=== PATIENT | female | born 1950 | race Caucasian/White ===

== ENCOUNTER → 2018-01-12 10:07 | Outpatient (CLI) | payer MEDICARE, OTHER, SELFPAY | PROVIDERS: Visit Provider Internal Medicine | DX: M85.852 Other specified disorders of bone density and structure, left thigh (principal); Z78.0 Asymptomatic menopausal state | CPT/HCPCS: 77080 ==

== ENCOUNTER → 2018-10-27 15:27 | Outpatient (CLI) | payer MEDICARE, OTHER, SELFPAY ==
--- NOTE | 2018-10-27 15:31 | DI.RAD.S_ITS ---
PROCEDURE: XR CHEST 2V INDICATIONS: cough TECHNIQUE: 2 views of the chest were acquired. COMPARISON: [facility], , CHEST 2 VIEW, 09/12/2010, 17:07. FINDINGS: Surgical changes and devices: None. Lungs and pleura: Lungs are clear. No pleural effusions or pneumothorax. Mediastinum: Mediastinal contours are normal. Heart size is normal. Bones and chest wall: No suspicious bony abnormalities. Soft tissues appear unremarkable. IMPRESSION: No acute cardiopulmonary disease process. Dictated by: Lilo Cruz MD, PhD on 10/27/2018 at 15:42 Approved by: Lilo Cruz MD, PhD on 10/27/2018 at 15:42
== END ==
PROVIDERS: PCP Student in an Organized Health Care Education/Training Program; Visit Provider Physician Assistant
DX: R05 Cough (principal)
CPT/HCPCS: 71046

== ENCOUNTER → 2019-12-16 08:23 | Outpatient (CLI) | payer MEDICARE, OTHER, SELFPAY ==
--- NOTE | 2019-12-16 | DI.MG.S_ITS ---
BILATERAL DIGITAL SCREENING MAMMOGRAM 3D/2D WITH CAD: 12/16/2019 CLINICAL: Routine screening. Comparison is made to exams dated: 10/25/2016 mammogram, 04/19/2015 mammogram, and 10/08/2013 mammogram - [facility]. The tissue of both breasts is extremely dense, which lowers the sensitivity of mammography. Current study was also evaluated with a Computer Aided Detection (CAD) system. There is a biopsy clip in the left breast. No significant masses, calcifications, or other findings are seen in either breast. There has been no significant interval change. IMPRESSION: NEGATIVE There is no mammographic evidence of malignancy. A 1 year screening mammogram is recommended. This exam was interpreted at Station ID: [id number]. NOTE: For mammograms, a report in lay terms will be sent to the patient. Approximately 15% of breast malignancies will not be visualized mammographically. In the management of a palpable breast mass, a negative mammogram must not discourage biopsy of a clinically suspicious lesion. Electronically Signed By: Sonu robles/quita:12/16/2019 09:58:04 letter sent: Normal Exam ACR BI-RADS Category 1: Negative 3341F
== END ==
PROVIDERS: PCP Student in an Organized Health Care Education/Training Program; Referring Provider Student in an Organized Health Care Education/Training Program; Visit Provider Obstetrics & Gynecology
DX: Z12.31 Encounter for screening mammogram for malignant neoplasm of breast (principal)
CPT/HCPCS: 77063; 77067

== ENCOUNTER → 2020-06-12 13:23 | Outpatient (CLI) | payer MEDICARE, OTHER, SELFPAY ==
[2020-06-12 14:30] LABS: COVID19 -Nasal RAPID Negative (Negative)
== END ==
PROVIDERS: PCP Student in an Organized Health Care Education/Training Program; Visit Provider Physician Assistant
DX: Z01.812 Encounter for preprocedural laboratory examination (principal); Z20.822 Contact with and (suspected) exposure to COVID-19
CPT/HCPCS: 87635; C9803

== ENCOUNTER 2020-09-04 08:30 | Outpatient (RCR) | payer MEDICARE, OTHER, SELFPAY | END 2020-09-04 09:30 | LOC: CAR 08:30 | PROVIDERS: PCP Student in an Organized Health Care Education/Training Program; Referring Provider Thoracic Surgery (Cardiothoracic Vascular Surgery); Visit Provider Thoracic Surgery (Cardiothoracic Vascular Surgery) | DX: Z95.2 Presence of prosthetic heart valve (principal) | CPT/HCPCS: 93798 ==

== ENCOUNTER → 2020-09-14 09:10 | Outpatient (CLI) | payer MEDICARE, OTHER, SELFPAY ==
--- NOTE | 2020-09-14 09:12 | DI.CT.S_ITS ---
PROCEDURE: CT CHEST WO CON INDICATIONS: 6 months Follow up lung nodules TECHNIQUE: Noncontrast 2.0-2.5 mm thick sections acquired from the pulmonary apices to the posterior costophrenic angles. 7 mm thick axial MIP and 5 mm coronal and sagittal reformats were then acquired. A low radiation dose technique was utilized. COMPARISON: Outside Facility, RG, XR CXR 2V, 04/24/2020, 15:23. Outside Facility, RG, XR CXR 1V, 04/24/2020, 5:51. Outside Facility, RG, CT ANGIO CHEST, 02/23/2020, 13:48. FINDINGS: Image quality: Diagnostic, given the low radiation dose technique. Lungs and pleura: There are pulmonary nodules bilaterally, unchanged in size. Lung nodule 1: 6 mm; ; series 3, image 252; RLL; solid noncalcified. Lung nodule 2: 3 mm; ; series 3, image 220; RLL; solid calcified. Lung nodule 3: 5 mm; ; series 3, image 212; RML; ground-glass. Lung nodule 4: 6 mm; ; series 3, image 206; lingula; solid noncalcified. Mediastinum: Heart size is normal. No pericardial effusion. No mediastinal adenopathy by size criteria. There is a aortic valve prosthesis. Ascending thoracic aorta is ectatic measuring 4.2 x 4.1 cm. The central pulmonary arteries are normal in size. Esophagus is normal in caliber. Tiny hiatal hernia. Bones and chest wall: Sternotomy. No suspicious bony lesions. No vertebral body compression fractures. No axillary or supraclavicular adenopathy by size criteria. Thyroid gland is normal. Abdomen: Visualized upper abdomen solid organs and bowel loops appear normal in the absence of contrast. IMPRESSION: 1. Stable pulmonary nodules. Please see enclosed follow-up recommendation. 2. Ascending aortic ectasia. Fleischner Society criteria for SOLID lung nodule followup. Nodule size (mm)Low-risk patientHigh-risk patient<6 (single or multiple)No routine followup.Optional CT at 12 months. 6-8 (single or multiple)CT at 6-12 months, then optional CT at 18-24 mo.CT at 6-12 months, then CT at 18-24 months. >8 (single)CT at 3 months, PET-CT, or biopsy. Same as for low-risk pts. >8 (multiple)CT at 3-6 months, then optional CT at 18-24 mo.CT at 3-6 months, then CT at 18-24 months. Fleischner Society criteria for SUB-SOLID lung nodule followup. Solitary pure ground-glass nodules<6 mm (ground glass or part solid)No followup needed. 6 mm or larger (ground glass)CT at 6-12 months to confirm persistence, then CT every 2 years until 5 years.6 mm or larger (part solid)CT at 3-6 months to confirm persistence, then annual CT until 5 years if unchanged and solid component remains <6 mm. Multiple sub-solid nodules<6 mmCT at 3-6 months, then CT consider at 2 & 4 years for high risk patients. [address] at 3-6 months. Subsequent management based on most suspicious lesions. Recommendations do not apply to lung cancer screening, patients with immunosuppression, or patients with known primary cancer. Dictated by: Sylvia Mcnulty M.D. on 09/14/2020 at 10:42 Approved by: Sylvia Mcnulty M.D. on 09/14/2020 at 12:34
== END ==
PROVIDERS: PCP Student in an Organized Health Care Education/Training Program; Referring Provider Student in an Organized Health Care Education/Training Program; Visit Provider Student in an Organized Health Care Education/Training Program
DX: R91.8 Other nonspecific abnormal finding of lung field (principal); I77.819 Aortic ectasia, unspecified site
CPT/HCPCS: 71250

== ENCOUNTER → 2022-02-14 13:59 | Outpatient (CLI) | payer MEDICARE, OTHER, SELFPAY ==
--- NOTE | 2022-02-14 14:02 | DI.MG.S_ITS ---
BILATERAL DIGITAL SCREENING MAMMOGRAM 3D/2D WITH CAD: 02/14/2022 CLINICAL: Routine screening. Comparison is made to exams dated: 12/16/2019 mammogram, 10/25/2016 mammogram, and 04/19/2015 mammogram - [facility]. Both breasts are extremely dense, which lowers the sensitivity of mammography (category d />75% glandular tissue). Current study was also evaluated with a Computer Aided Detection (CAD) system. There are benign calcifications in both breasts. There also is a biopsy clip in the left breast. No significant masses, calcifications, or other findings are seen in either breast. There has been no significant interval change. IMPRESSION: BENIGN There is no mammographic evidence of malignancy. A 1 year screening mammogram is recommended. Based on Tyrer-Cuzick model (a risk assessment model), the patient's lifetime risk is 20.4% and her 10 year risk is 14.3%. If a patient has an elevated risk, a more comprehensive evaluation should be considered and/or a referral to a genetic counselor. The [place] [employer], [employer], and NCCN Guidelines advise the consideration of Breast MRI as an adjunct to screening mammography in patients whose Lifetime risk to develop breast cancer is 20% or higher. This exam was interpreted at Station ID: [id number]. NOTE: For mammograms, a report in lay terms will be sent to the patient. Approximately 15% of breast malignancies will not be visualized mammographically. In the management of a palpable breast mass, a negative mammogram must not discourage biopsy of a clinically suspicious lesion. Electronically Signed By: Tong Rivera acr/quita:02/14/2022 15:45:56 letter sent: Normal Exam ACR BI-RADS Category 2: Benign Finding(s) 3342F
== END ==
PROVIDERS: PCP Student in an Organized Health Care Education/Training Program; Referring Provider Student in an Organized Health Care Education/Training Program; Visit Provider Student in an Organized Health Care Education/Training Program
DX: M81.0 Age-related osteoporosis without current pathological fracture (principal); Z12.31 Encounter for screening mammogram for malignant neoplasm of breast; Z79.890 Hormone replacement therapy; M85.89 Other specified disorders of bone density and structure, multiple sites
CPT/HCPCS: 77063; 77067; 77080

== ENCOUNTER → 2022-10-24 11:50 | Outpatient (CLI) | payer MEDICARE, OTHER, SELFPAY ==
[2022-10-28 14:16] LABS: Estradiol 12.3 pg/mL (.); Estriol,Serum <0.1 ng/mL (.); Estrone,Serum 28 pg/mL (0-125)
== END ==
PROVIDERS: PCP Student in an Organized Health Care Education/Training Program; Referring Provider Obstetrics & Gynecology; Visit Provider Obstetrics & Gynecology
DX: N95.1 Menopausal and female climacteric states (principal)
CPT/HCPCS: 36415; 82670; 82677; 82679

== ENCOUNTER → 2022-11-01 13:43 | Outpatient (CLI) | payer MEDICARE, OTHER, SELFPAY ==
[2022-11-05 17:59] LABS: Fecal Immunochemical Test Negative (Negative)
== END ==
PROVIDERS: PCP Student in an Organized Health Care Education/Training Program; Referring Provider Student in an Organized Health Care Education/Training Program; Visit Provider Student in an Organized Health Care Education/Training Program
DX: Z12.11 Encounter for screening for malignant neoplasm of colon (principal)
CPT/HCPCS: 82274

== ENCOUNTER → 2023-03-22 10:22 | Outpatient (CLI) | payer MEDICARE, OTHER, SELFPAY ==
--- NOTE | 2023-03-22 10:24 | DI.MG.S_ITS ---
BILATERAL DIGITAL SCREENING MAMMOGRAM 3D/2D WITH CAD: 03/22/2023 CLINICAL: Routine screening. Comparison is made to exams dated: 02/14/2022 mammogram, 12/16/2019 mammogram, and 10/25/2016 mammogram - [facility]. Both breasts are extremely dense, which lowers the sensitivity of mammography (category d />75% glandular tissue). Current study was also evaluated with a Computer Aided Detection (CAD) system. There are benign calcifications in both breasts. There also is a biopsy clip in the left breast. No significant masses, calcifications, or other findings are seen in either breast. There has been no significant interval change. IMPRESSION: BENIGN There is no mammographic evidence of malignancy. A 1 year screening mammogram is recommended. Based on the Tyrer Cuzick model (a risk assessment model) the patient's lifetime risk is 19.9% and her 10 year risk is 14.6%. According to the ACR, ACS, and NCCN guidelines, an annual breast MRI exam along with mammogram is recommended if the patient's lifetime risk is 20% or greater. This exam was interpreted at Station ID: [id number]. NOTE: For mammograms, a report in lay terms will be sent to the patient. Approximately 15% of breast malignancies will not be visualized mammographically. In the management of a palpable breast mass, a negative mammogram must not discourage biopsy of a clinically suspicious lesion. Electronically Signed By: Sonu robles/quita:03/22/2023 10:59:47 letter sent: Normal Exam ACR BI-RADS Category 2: Benign Finding(s) 3342F
== END ==
PROVIDERS: PCP Nurse Practitioner; Referring Provider Nurse Practitioner; Visit Provider Nurse Practitioner
DX: Z12.31 Encounter for screening mammogram for malignant neoplasm of breast (principal)
CPT/HCPCS: 77063; 77067

== ENCOUNTER → 2023-10-15 08:37 | Outpatient (CLI) | payer MEDICARE, OTHER, SELFPAY ==
--- NOTE | 2023-10-15 08:39 | DI.MRI.S_ITS ---
BREAST MRI OF BOTH BREASTS: 10/15/2023 CLINICAL: High risk screening. Comparison is made to exams dated: 03/22/2023 mammogram, 02/14/2022 mammogram, and 12/16/2019 mammogram - [facility]. INDICATIONS: 6mo breast screening, tyrer-cuzick risk over 20% TECHNIQUE: The patient was placed prone in a dedicated breast imaging coil. Precontrast axial STIR and 3D FLASH without fat saturation sequences were obtained. Both before and after bolus injection of contrast, sequential 1-minute axial 3D FLASH with fat saturation sequences for 3 time points, with subtraction images and maximum intensity projections (MIP's) generated. Delayed sagittal FLASH images with fat saturation were also obtained. Computer-aided detection, including computer algorithm analysis of MRI image data for lesion detection and characterization, pharmacokinetic analysis, with further physician review for interpretation, was performed. FINDINGS: Image quality: Excellent. There is mild background parenchymal enhancement. Extreme fibroglandular elements are seen in both breasts. Right breast: Intrinsic O2p-vodixcnsplfs material is seen within the ducts on precontrast images, likely proteinaceous or hemorrhagic debris. No suspicious mass or abnormal non-mass enhancement. No axillary or internal mammary lymphadenopathy. Left breast: Intrinsic Y0x-kscscnhbiukf material is seen within the ducts on precontrast images, likely proteinaceous or hemorrhagic debris. No suspicious mass or abnormal non-mass enhancement. No axillary or internal mammary lymphadenopathy. Miscellaneous: Sternotomy wires and prosthetic aortic valve are noted. Included portions of the upper abdomen and anterior chest wall demonstrate no significant abnormality. IMPRESSION: NEGATIVE No MR evidence of malignancy in the right or left breast. No axillary or internal mammary lymphadenopathy. BIRADS 1: Negative. Recommend continued annual high risk screening schedule with annual mammograms and annual breast MRI on alternating 6 month basis. COMMENT: The imaging literature indicates that a negative contrast breast MRI examination has a high sensitivity and a moderate specificity for detecting and excluding invasive carcinomas to a detection threshold of 3-5 mm; nonetheless, appropriate clinical and mammographic follow-up are recommended. MRI is not sensitive for detecting DCIS (ductal carcinoma in situ) and may not detect large invasive neoplasms that show only minimal enhancement such as mucinous carcinoma. If there are suspicious calcifications or clinically worrisome palpable masses, then biopsy should still be considered. Invasive neoplasms can be hidden by co-existent and benign enhancement caused by mastitis, hormone therapy effects, radiation therapy, , and recent biopsy or surgery. False positive examinations can occur in a number of circumstances, including breasts that have recently been subject to invasive procedures and those that contain atypical ductal hyperplasia, hormonally stimulated glandular tissue, fat necrosis, or radial scars. A 1 year screening mammogram and a breast MRI is recommended. Future imaging is recommended as follows: 03/22/2024 screening mammogram. This exam was interpreted at Station ID: [id number]. Electronically Signed By: Santiago Quesada M.D. ar/:10/15/2023 20:12:02 letter sent: Normal Exam ACR BI-RADS Category 1: Negative 3341F
== END ==
LOC: MRI 08:37
PROVIDERS: PCP Nurse Practitioner; Referring Provider Nurse Practitioner; Visit Provider Nurse Practitioner
DX: Z12.39 Encounter for other screening for malignant neoplasm of breast (principal); Z91.89 Other specified personal risk factors, not elsewhere classified
CPT/HCPCS: 77049; A9579

== ENCOUNTER → 2023-11-21 08:38 | Outpatient (CLI) | payer MEDICARE, OTHER, SELFPAY ==
[2023-11-21 10:14] LABS: Add Manual Diff / Slide Review NO; Basophils Absolute Auto 100 /uL (0-100); Basophils Percent Auto 0.8 % (0-2); Eosinophils Absolute Auto 100 /uL (0-450); Hematocrit 42.7 % (36-46); Hemoglobin 14.3 g/dL (12.0-16.0); Lymphocytes Absolute Auto 2700 /uL (1100-4500); Mean Corpuscular HGB Conc 33.5 % (30-36); Mean Corpuscular Hemoglobin 29.6 PG (26-34); Mean Corpuscular Volume 88.4 fL (80-100); Monocytes Absolute Auto 700 /uL (0-900); Monocytes Percent Auto 7.6 % (3-14); Neutrophils Absolute Auto 6100 /uL (1500-7000); Neutrophils Percent Auto 62.6 % (50-75); Platelet Count 344 X10^3/uL (150-400); Red Blood Cell Count 4.83 X10^6/uL (4.0-5.2); Red Cell Distribution Width 14.3 % (11.6-14.8); White Blood Cell Count 9.8 X10^3/uL (4.5-11.0)
[2023-11-21 10:38] LABS: Alanine Aminotransferase 28 IU/L (<35); Albumin 4.4 g/dL (3.5-5.0); Albumin Globulin Ratio 1.6 (1.0-2.8); Alkaline Phosphatase 73 U/L (38-126); Aspartate Aminotransferase 36 IU/L (14-36); BUN Creatinine Ratio 23.1 (6-22); Bilirubin Total 0.5 mg/dL (0.2-1.3); Blood Urea Nitrogen 21 mg/dL (7-17); Calcium 9.9 mg/dL (8.4-10.2); Carbon Dioxide 30 mmol/L (22-32); Chloride 106 mmol/L (98-107); Cholesterol 242 mg/dL (140-199); Estimated Glomerular Filt Rate > 60 mL/min (>60); Globulin 2.8 g/dL (1.7-4.1); Glucose 98 mg/dL (80-110); HDL Cholesterol 95 mg/dL (40-60); HEMOLYSIS < 15 (0-50); LDL Cholesterol Calculated 123 mg/dL (<100); Potassium 4.5 mmol/L (3.4-5.1); Sodium 138 mmol/L (137-145); Total Protein 7.2 g/dL (6.3-8.2); Triglycerides 118 mg/dL (35-150)
[2023-11-21 10:50] LABS: Free T3, Triiodothyronine Free 3.19 pg/mL (2.77-5.27); Free T4, Direct Thyroxine 0.86 ng/dL (0.78-2.19)
[2023-11-21 11:04] LABS: Thyroid Stimulating Hormone 1.98 uIU/mL (0.47-4.68)
[2023-11-21 12:34] LABS: Creatinine Urine Random 77.82 mg/dL
[2023-11-21 12:45] LABS: Microalbumin Urine Random 0.8 mg/dL (0-1.6)
== END ==
PROVIDERS: PCP Nurse Practitioner; Referring Provider Nurse Practitioner; Visit Provider Nurse Practitioner
DX: E78.5 Hyperlipidemia, unspecified (principal); Z79.899 Other long term (current) drug therapy; N95.1 Menopausal and female climacteric states; Z98.890 Other specified postprocedural states; Z95.2 Presence of prosthetic heart valve
CPT/HCPCS: 36415; 80053; 80061; 82043; 82570; 84439; 84443; 84481; 85025

== ENCOUNTER → 2024-02-04 09:41 | Outpatient (CLI) | payer MEDICARE, OTHER, SELFPAY ==
--- NOTE | 2024-02-04 09:42 | DI.RAD.S_ITS ---
PROCEDURE: XR DEXA AXIAL SKELETON INDICATIONS: post menopausal osteoporosis COMPARISON: [facility], CR, XR DEXA AXIAL SKELETON, 02/14/2022, 14:23. FINDINGS: Lumbar Spine: Bone mineral density 0.876 g/cm2, T score -1.3, osteopenia. Left Hip: Bone mineral density 0.892 g/cm2, T score -0.4, normal bone density. Left Femoral Neck: Bone mineral density 0.648 g/cm2, T score -1.8, osteopenia. Right Hip: Bone mineral density 0.865 g/cm2, T score -0.6, normal bone density. Right Femoral Neck: Bone mineral density 0.638 g/cm2, T score -1.9, osteopenia. Fracture Risk Calculation (when applicable): 10-year fracture risk of a major osteoporotic fracture 26% and of a hip fracture 9.9%. (T score greater or equal to -1.0 to: NORMAL) (T score from -1.1 to -2.4: OSTEOPENIA) (T score less than or equal to -2.5: OSTEOPOROSIS) IMPRESSION: Osteopenia. Follow-up guidelines as follows: Osteoporosis: Consider a repeat DEXA and Vertebral Fracture Assessment (VFA) exam in 2 years or sooner if medically necessary, to reassess this patient's status. Osteopenia: Consider a repeat DEXA in 2-3 years to reassess this patient's status, or if there is a new clinical indication. Normal: Consider a repeat DEXA in 5 years or sooner, or if there is a new clinical indication. All treatment decisions require clinical judgment and consideration of individual patient factors, including patient preferences, comorbidities, previous drug use, risk factors not captured in the FRAX model (e.g., frailty, falls, vitamin D deficiency, increased bone turnover, interval significant decline in bone density ) and possible under- or over-estimation of fracture risk by FRAX. In addition, the NOF Guide recommends that FDA-approved medical therapies be considered in postmenopausal women and men age >= 50 years with a: * Hip or vertebral (clinical or morphometric) fracture * T-score of <=-2.5 at the spine or hip * Ten-year fracture probability by FRAX of >= 3% for hip fracture or >=20% for major osteoporotic fracture. People with diagnosed cases of osteoporosis or at high risk for fracture should have regular bone mineral density tests. For patients eligible for Medicare, routine testing is allowed once every 2 years. The testing frequency can be increased to one year for patients who have rapidly progressing disease, those who are receiving or discontinuing medical therapy to restore bone mass, or have additional risk factors. Dictated by: Sonu Erazo M.D. on 02/04/2024 at 15:41 Approved by: Sonu Erazo M.D. on 02/04/2024 at 15:47
== END ==
PROVIDERS: PCP Nurse Practitioner; Referring Provider Nurse Practitioner; Visit Provider Nurse Practitioner
DX: M85.89 Other specified disorders of bone density and structure, multiple sites (principal)
CPT/HCPCS: 77080

== ENCOUNTER → 2024-02-11 08:11 | Outpatient (CLI) | payer MEDICARE, OTHER, SELFPAY | PROVIDERS: PCP Nurse Practitioner; Referring Provider Nurse Practitioner; Visit Provider Nurse Practitioner | DX: E78.5 Hyperlipidemia, unspecified (principal) | CPT/HCPCS: 36415; 80061 ==

== ENCOUNTER → 2024-04-24 09:12 | Outpatient (CLI) | payer MEDICARE, OTHER, SELFPAY ==
--- NOTE | 2024-04-24 09:14 | DI.MG.S_ITS ---
BILATERAL DIGITAL SCREENING MAMMOGRAM 3D/2D WITH CAD: 04/24/2024 CLINICAL: Routine screening. Comparison is made to exams dated: 03/22/2023 mammogram, 02/14/2022 mammogram, and 12/16/2019 mammogram - [facility]. The breasts are extremely dense, which lowers the sensitivity of mammography (category d />75% glandular tissue). Current study was also evaluated with a Computer Aided Detection (CAD) system. There are benign calcifications in both breasts. There also is a biopsy clip in the left breast. No significant masses, calcifications, or other findings are seen in either breast. There has been no significant interval change. IMPRESSION: BENIGN There is no mammographic evidence of malignancy. A 1 year screening mammogram is recommended. Future imaging is recommended as follows: 10/15/2024 screening breast MRI. Based on the Tyrer Cuzick model (a risk assessment model) the patient's lifetime risk is 19.5% and her 10 year risk is 15.0%. According to the ACR, ACS, and NCCN guidelines, an annual breast MRI exam along with mammogram is recommended if the patient's lifetime risk is 20% or greater. This exam was interpreted at Station ID: [id number]. NOTE: For mammograms, a report in lay terms will be sent to the patient. Approximately 15% of breast malignancies will not be visualized mammographically. In the management of a palpable breast mass, a negative mammogram must not discourage biopsy of a clinically suspicious lesion. Electronically Signed By: Sonu robles/quita:04/26/2024 07:29:49 letter sent: Normal Exam ACR BI-RADS Category 2: Benign
== END ==
PROVIDERS: Referring Provider Nurse Practitioner; Visit Provider Nurse Practitioner
DX: Z12.31 Encounter for screening mammogram for malignant neoplasm of breast (principal); Z12.39 Encounter for other screening for malignant neoplasm of breast; R92.30 Dense breasts, unspecified; Z97.8 Presence of other specified devices
CPT/HCPCS: 77063; 77067

== ENCOUNTER 2024-05-21 07:06 | Day surgery (SDC) | payer MEDICARE, OTHER, SELFPAY ==
[2024-05-21 07:35] VITALS: BMI 22.6
[2024-05-21 07:40] VITALS: BP 110/63; PULSE 65; RESP 17; TEMP 36.6; O2SAT 96
--- NOTE | 2024-05-21 08:09 | P.HP_ITS ---
History of Present Illness History of Present Illness Date Patient Seen: 05/21/24 Time Patient Seen: 08:09 Chief complaint: Colonoscopy Narrative: 73-year-old white female, history of bioprosthetic aortic valve replacement, family history of colon cancer in her father and maternal grandmother, presents for high-risk screening. [facility] Medical History (Updated 05/21/24 @ 08:10 by Bob Wilks MD) Family history of colon cancer in father Hyperlipidemia Osteopenia determined by x-ray Chicken pox Measles Mumps Migraines Ovarian cyst Herpes Retinal artery branch occlusion, left eye (2017) Surgical History Aortic valve replaced History of open heart surgery S/P aortic valve replacement with bioprosthetic valve Anesthesia complication History of bilateral oophorectomy History of bilateral salpingo-oophorectomy (BSO) Status post tubal ligation Family History Father Colon cancer Hypertension Parkinson's disease Mother Heart disease Hypertension Stroke Heart valve replaced Hip fracture Sister Age: 74 Hypertension Sister Age: 68 Anxiety Grandfather No problems noted. Grandmother Colon cancer Grandfather Heart attack Grandmother Heart problem Social History household members: spouse Smoking Status: Never smoker alcohol intake: current Meds Home Medications and Allergies Home Medications Medication Instructions Recorded Confirmed Type cholecalciferol (vitamin D3) 50 50 mcg PO DAILY 01/31/22 05/21/24 History mcg (2,000 unit) capsule multivitamin 1 tab PO DAILY 01/31/22 05/21/24 History acyclovir 400 mg tablet 400 mg PO TID PRN outbreak #30 tabs 11/11/23 05/21/24 Rx amoxicillin 500 mg capsule 2,000 mg (4 x 500 mg) PO ONCE 11/11/23 05/21/24 Rx prior to dental work #24 caps aspirin 81 mg tablet,delayed 81 mg PO .HS 11/11/23 05/21/24 History release (Adult Low Dose Aspirin) cmkxfjvgyl-cujltgphrzxeg-mtgkttpl 1 tab PO Q4HP PRN headache pain 11/11/23 05/21/24 Rx 50 mg-325 mg-40 mg tablet #10 tabs calcium carbonate [Tums] See Rx Instructions PO .PRN 11/11/23 05/21/24 History heartburn calcium with Vit D 400IU 600 mg PO BID 11/11/23 05/21/24 History diphenhydramine HCl 25 mg capsule See Rx Instructions PO BEDTIME PRN 11/11/23 05/21/24 History (Benadryl) insomnia sodium,potassium,mag sulfates 17.5 See Rx Instructions PO .COMPLEX 01/07/24 02/16/24 Rx gram-3.13 gram-1.6 gram oral soln #354 mL (Suprep Bowel Prep Kit) CMP BIEST 50:50 0.4% Cream See Rx Instructions .Route 01/21/24 05/21/24 Rx .COMPLEX 90 days #30 grams CMP Testosterone 0.24mg Cream See Rx Instructions .Route 01/21/24 05/21/24 Rx .COMPLEX 90 days #23 grams CMP Progesterone 160mg/ml Cream See Rx Instructions topical 02/16/24 02/16/24 Rx BEDTIME #46 grams Allergies Allergy/AdvReac Type Severity Reaction Status Date / Time codeine [CODEINE] Allergy Mild N & V Verified 05/21/24 07:33 fentanyl Allergy Mild dry heaves Verified 05/21/24 07:33 melatonin [MELATONIN] Allergy Mild severe Verified 05/21/24 07:33 diarrhea morphine [MORPHINE] Allergy Mild N & V Verified 05/21/24 07:33 Sulfa (Sulfonamide Allergy Mild RASH Verified 05/21/24 07:33 Antibiotics) [SULFA (SULFONAMIDE ANTIBIOTICS)] metronidazole [METRONIDAZOLE] Allergy Unknown unknown Verified 05/21/24 07:33 Review of Systems Review of Systems ROS: Yes All systems reviewed with the patient and are negative except as otherwise documented Exam Vital Signs (past 8 hours): - 05/21/24 07:40 Temperature 98 F Pulse Rate 65 Respiratory Rate 17 Blood Pressure 110/63 Pulse Oximetry 96 Oxygen Delivery Method Room Air Oxygen Delivery Method Room Air Narrative Exam Narrative: Gen: NAD, sitting comfortably in bed, appears well HEENT: Sclera are anicteric, head is normocephalic and atraumatic, trachea is midline. CV: RRR, no JVD Resp: clear to auscultation bilaterally, equal chest wall movement bilaterally Abd: soft, nontender, normoactive bowel sounds Ext: no edema, full range of motion Neuro: Cranial nerves II-XII grossly intact, no focal deficits Skin: No erythema or ecchymosis Assessment & Plan Assessment and plan (1) Family history of colon cancer in father: Status: Acute Assessment & Plan narrative: Patient presents for initial screening colonoscopy Risks, benefits, alternatives to colonoscopy explained, including but not limited to bowel perforation or other serious complication requiring surgery at less than 1 in 5000 colonoscopies, abdominal pain, cramping or bleeding and less than 1% of colonoscopies, and the chances that we find a diagnosis that would require further intervention of about 2%. Patient agrees to proceed. Time-Based Coding :: [TOTAL MINUTES] spent with patient and on the chart (including review of chart, obtaining history, exam, reviewing outside data, placing orders, documenting exam and treatment plan, and counseling patient) on [DATE].
--- NOTE | 2024-05-21 08:36 | PM.OP.COLON ---
Operative Date/Time/Diagnoses Date of procedure: 05/21/24 Time of procedure: 08:37 Pre-op diagnosis: Family history of colon cancer Post-op diagnosis: same Procedure & Clinicians Study performed: Colonoscopy Same procedure as scheduled: Yes Indications: Family history of colon cancer Surgeon: Bob Wilks Procedure Notes SCOAP/Timeout: Performed Procedure in detail: Time-out was performed. Mac was induced. Patient was placed in left lateral decubitus position. The perineum was inspected without any gross abnormality. Lubricated pediatric colonoscope was inserted and advanced to the cecum. The terminal ileum was intubated. The colonoscope was withdrawn slowly inspecting the circumference of the colon. Very small polyps may have been missed, prep quality was adequate. Retroflexed view of the rectum showed small, non prolapsed nonbleeding internal hemorrhoids. The scope was withdrawn the patient was taken to PACU in good condition. Scope withdrawal time: 8 Sedation minutes: 11 Specimen(s): none sent Complications: none Impression: Normal colon Post-procedure Recommendations: Colonoscopy in 10 years Follow up: as needed Disposition: PACU
[2024-05-21 08:41] VITALS: BP 103/84; PULSE 47; RESP 16; TEMP 36.6; O2SAT 97
[2024-05-21 08:46] VITALS: BP 102/65; PULSE 47; RESP 14; O2SAT 97
[2024-05-21 08:51] VITALS: BP 99/57; PULSE 66; RESP 12; O2SAT 98
[2024-05-21 08:53] VITALS: BP 106/65; PULSE 62; RESP 12; TEMP 36.1; O2SAT 96
== END 2024-05-21 09:06 | disposition home or self-care (01) ==
PROVIDERS: Referring Provider Surgery; Visit Provider Surgery
PROC: 0DJD8ZZ Inspection of Lower Intestinal Tract, Via Natural or Artificial Opening Endoscopic (ICD-10-PCS; CPT 45378; principal; 2024-05-21 08:15)
DX: Z12.11 Encounter for screening for malignant neoplasm of colon (principal); Z80.0 Family history of malignant neoplasm of digestive organs
CPT/HCPCS: G0105; J2704

== ENCOUNTER → 2024-10-21 15:36 | Outpatient (CLI) | payer MEDICARE, OTHER, SELFPAY ==
--- NOTE | 2024-10-21 15:37 | DI.MRI.S_ITS ---
MR breast BI wo/w con: 10/21/2024. BI-RADS: 1 CLINICAL: 74-year old female for bilateral diagnostic breast MRI. No personal or first-degree family history of breast cancer. The patient had a prior left breast biopsy. PRIOR EXAMS: 04/24/2024, 10/15/2023, 03/22/2023, 02/14/2022, 12/16/2019, 10/25/2016, 04/19/2015. MRI TECHNIQUE: Bilateral breast MRI was performed on a 1.5 Natali magnet using a dedicated breast coil with mild compression. Axial T1 and T2 STIR sequences were obtained. Dynamic contrast enhanced VIBRANT fat-suppressed sequences were obtained. Delayed sagittal high resolution or sagittal reconstructed isotropic sequence was also obtained. Subtraction images and maximum intensity projection images were obtained. The study was evaluated using [employer] software. IV Contrast: 20 ml ProHance. FIBROGLANDULAR TISSUE Bilateral: C. Heterogeneous fibroglandular tissue. BACKGROUND PARENCHYMAL ENHANCEMENT Bilateral: Mild symmetrical background parenchymal enhancement. BREAST FINDINGS Right: No suspicious mass, suspicious non-mass enhancement, or other concerning finding identified. Left: Benign-appearing cyst or cysts noted. No suspicious mass, suspicious non-mass enhancement, or other concerning finding identified. CHEST FINDINGS No axillary or internal mammary chain adenopathy. Median sternotomy wires and aortic valvuloplasty changes are incidentally noted. No abnormality seen in the visible portions of the heart, lungs, chest wall, and liver. IMPRESSION: * No evidence of malignancy. RECOMMENDATIONS Bilateral * Annual screening mammography. OVERALL ASSESSMENT CATEGORY BI-RADS-1: Negative. ELECTRONICALLY SIGNED: Josefina Medina M.D. on 10/22/2024 at 12:56:17 PM PT Interpreting Station ID: [id number]
== END ==
PROVIDERS: PCP Nurse Practitioner Family; Referring Provider Nurse Practitioner Family; Visit Provider Nurse Practitioner Family
DX: Z12.39 Encounter for other screening for malignant neoplasm of breast (principal); N60.02 Solitary cyst of left breast
CPT/HCPCS: 77049; A9579

== ENCOUNTER → 2024-11-17 12:04 | Outpatient (CLI) | payer MEDICARE, OTHER, SELFPAY ==
[2024-11-17 13:01] LABS: COVID-19 CEPHEID 4-PLEX PCR Negative (Negative); Influenza A - CEPHEID Flu A NEGATIVE (NEGATIVE); Influenza B - CEPHEID Flu B NEGATIVE (NEGATIVE); Respiratory Syncytial Virus Negative (Negative)
== END ==
PROVIDERS: PCP Nurse Practitioner Family; Visit Provider Nurse Practitioner Family
DX: R53.1 Weakness (principal); R53.83 Other fatigue; R05.9 Cough, unspecified
CPT/HCPCS: 0241U

== ENCOUNTER → 2024-11-17 12:37 | Outpatient (CLI) | payer MEDICARE, OTHER, SELFPAY ==
--- NOTE | 2024-11-17 12:39 | DI.RAD.S_ITS ---
PROCEDURE: XR CHEST 2V INDICATIONS: cough fatigue SOB TECHNIQUE: 2 views of the chest were acquired. COMPARISON: None. FINDINGS: Heart, mediastinum and pulmonary vascular: Heart is normal in size and configuration. Aortic valve prostheses in expected location without evidence of complication. Mediastinum is unremarkable. Pulmonary vascular is normal. Lungs: Small right middle lobe infiltrate partially obscures the right heart border Pleural spaces: Normal-no effusions or pneumothorax. Bones and soft tissues: Normal IMPRESSION: Small right middle lobe pneumonia. Mild underlying chronic bronchitis or asthma Dictated by: Juliano Short M.D. on 11/18/2024 at 12:31 Approved by: Juliano Short M.D. on 11/18/2024 at 12:32
== END ==
PROVIDERS: PCP Nurse Practitioner Family; Referring Provider Nurse Practitioner Family; Visit Provider Nurse Practitioner Family
DX: J18.9 Pneumonia, unspecified organism (principal); R05.9 Cough, unspecified; R53.83 Other fatigue; R53.1 Weakness
CPT/HCPCS: 0241U; 71046

== ENCOUNTER → 2024-11-18 09:43 | Outpatient (CLI) | payer MEDICARE, OTHER, SELFPAY ==
[2024-11-18 11:39] LABS: Add Manual Diff / Slide Review NO; Basophils Absolute Auto 100 /uL (0-100); Basophils Percent Auto 0.8 % (0-2); Eosinophils Absolute Auto 0 /uL (0-450); Eosinophils Percent Auto 0.3 % (2-4); Hematocrit 47.4 % (36-46); Hemoglobin 16.1 g/dL (12.0-16.0); Lymphocytes Absolute Auto 2800 /uL (1100-4500); Lymphocytes Percent Auto 23.4 % (25-40); Mean Corpuscular Hemoglobin 29.2 PG (26-34); Mean Corpuscular Volume 85.8 fL (80-100); Monocytes Absolute Auto 1000 /uL (0-900); Monocytes Percent Auto 8.5 % (3-14); Neutrophils Absolute Auto 7900 /uL (1500-7000); Platelet Count 508 X10^3/uL (150-400); Red Blood Cell Count 5.53 X10^6/uL (4.0-5.2); Red Cell Distribution Width 14.2 % (11.6-14.8); White Blood Cell Count 11.9 X10^3/uL (4.5-11.0)
[2024-11-18 11:52] LABS: Alanine Aminotransferase 28 IU/L (<35); Albumin 4.9 g/dL (3.5-5.0); Albumin Globulin Ratio 1.3 (1.0-2.8); Alkaline Phosphatase 81 U/L (38-126); Aspartate Aminotransferase 43 IU/L (14-36); BUN Creatinine Ratio 22.4 (6-22); Bilirubin Total 0.7 mg/dL (0.2-1.3); Blood Urea Nitrogen 19 mg/dL (7-17); C-Reactive Protein Quant < 0.5 mg/dL (<1.0); Calcium 10.3 mg/dL (8.4-10.2); Carbon Dioxide 29 mmol/L (22-32); Chloride 94 mmol/L (98-107); Cholesterol 205 mg/dL (140-199); Estimated Glomerular Filt Rate > 60 mL/min (>60); Globulin 3.7 g/dL (1.7-4.1); Glucose 104 mg/dL (70-99); HDL Cholesterol 69 mg/dL (40-60); HEMOLYSIS < 15 (0-50); LDL Cholesterol Calculated 116 mg/dL (<100); Potassium 3.8 mmol/L (3.4-5.1); Sodium 134 mmol/L (137-145); Total Protein 8.6 g/dL (6.3-8.2); Triglycerides 98 mg/dL (35-150)
[2024-11-18 12:03] LABS: Erythrocyte Sedimentation Rate 4 MM/HR (0-20); HEMOLYSIS < 15 (0-50); Iron 71 ug/dL (37-170)
[2024-11-18 12:05] LABS: Vitamin D 25 Hydroxy (D3) 79.4 ng/mL (30.0-100.0)
[2024-11-18 12:14] LABS: Percent Iron Saturation 19 % (15-50); Total Iron Binding Capacity 370 ug/dL (265-497); Transferrin 324 mg/dL (206-381)
[2024-11-18 12:24] LABS: Ferritin 30 ng/mL (11-264)
[2024-11-18 12:34] LABS: TSH w/ Reflex to FT4 3.18 uIU/mL (0.47-4.68)
[2024-11-18 13:09] LABS: Folate > 20.0 ng/mL (2.76-20.0); Vitamin B12 > 1000 pg/mL (239-931)
[2024-11-18 15:13] LABS: HIV 1 & 2 Ab/Ag 4th Gen Combo NEGATIVE (NEGATIVE); Hep C Virus Ab w/Reflex Quant NEGATIVE s/c (NEGATIVE)
== END ==
PROVIDERS: PCP Nurse Practitioner Family; Referring Provider Nurse Practitioner Family; Visit Provider Nurse Practitioner Family
DX: Z11.4 Encounter for screening for human immunodeficiency virus [HIV] (principal); Z11.59 Encounter for screening for other viral diseases; R20.0 Anesthesia of skin; R20.2 Paresthesia of skin; R53.83 Other fatigue; R26.89 Other abnormalities of gait and mobility; R53.1 Weakness
CPT/HCPCS: 36415; 80053; 80061; 82306; 82607; 82728; 82746; 83540; 83550; 84425; 84443; 85025; 85651; 86140; 86803; 87389

== ENCOUNTER 2024-11-19 05:38 | Emergency (ER) | payer MEDICARE, OTHER, SELFPAY ==
[2024-11-19] VITALS (44 sets, daily range): BP systolic 128–188; BP diastolic 60–105; PULSE 66–100; RESP 12–66; TEMP 36.7; O2SAT 82–100; BMI 21.1
--- NOTE | 2024-11-19 05:40 | ED.GENADULT ---
HPI - General Adult <Sarah Flannery MD - Last Filed: 11/23/24 06:51> General Chief complaint: Shortness of Breath/Dyspnea Stated complaint: SOB w/ chest pain Time Seen by Provider: 11/19/24 05:40 History of Present Illness HPI narrative: 74-year-old woman with history of aortic stenosis post valve replacement, hyperlipidemia complaining of increasing stocking-glove paresthesias with chest tightening and heaviness for approximately 9 days now saw her primary care physician on November 17 for the same. Notes that she had a mild upper respiratory infection prior to onset of those symptoms. Comes in today complaining of increasing dyspnea and worsening stocking glove distribution paresthesias. She notes for past 3 nights she has been having severe pain when she is lying down to sleep. Describes it in the upper chest radiating through to her back and down her left arm not associated with diaphoresis. Symptoms today describes the chest pain is in the upper part of her chest more a pressure/heaviness not radiating down her arm but says it is a 7/10 pain and worse than after her valve replacement surgery. She has not been able to eat or drink for the last 9 days due to general malaise, food tasting poorly she has been trying to drink water and ensure shakes but has lost approximately 10 lb. She reports flashes but not necessarily chills. She has not had a bowel movement in 2 days which she describes as significantly unusual however she has not been eating much over the last 10 days Related Data Home Medications ?Medication ?Instructions ?Recorded ?Confirmed aspirin 81 mg tablet,delayed 81 mg PO .HS 11/11/23 11/29/24 release (Adult Low Dose Aspirin) calcium carbonate [Tums] See Rx Instructions PO .PRN 11/11/23 11/29/24 heartburn diphenhydramine HCl 25 mg capsule See Rx Instructions PO BEDTIME PRN 11/11/23 11/29/24 (Benadryl) insomnia gabapentin 300 mg capsule 300 mg PO TID 11/29/24 11/29/24 ibuprofen 600 mg tablet 600 mg PO .Q4 11/29/24 11/29/24 Previous Rx's ?Medication ?Instructions ?Recorded acyclovir 400 mg tablet 400 mg PO TID PRN outbreak #30 tabs 11/11/23 amoxicillin 500 mg capsule 2,000 mg (4 x 500 mg) PO ONCE 11/11/23 prior to dental work #24 caps rakqvsdxsk-[id number] 1 tab PO Q4HP PRN headache pain 11/11/23 50 mg-325 mg-40 mg tablet #10 tabs Allergies Allergy/AdvReac Type Severity Reaction Status Date / Time Sulfa (Sulfonamide Allergy Mild RASH Verified 11/17/24 11:15 Antibiotics) (SULFA (SULFONAMIDE ANTIBIOTICS)) metronidazole (METRONIDAZOLE) Allergy Unknown unknown Verified 11/17/24 11:15 codeine (CODEINE) AdvReac Mild N & V Verified 11/17/24 11:15 fentanyl AdvReac Mild dry heaves Verified 11/17/24 11:15 melatonin (MELATONIN) AdvReac Mild severe Verified 11/17/24 11:15 diarrhea morphine (MORPHINE) AdvReac Mild N & V Verified 11/17/24 11:15 <Winter Dukes DO - Last Filed: 11/29/24 19:08> History of Present Illness HPI narrative: 74-year-old woman with history of aortic stenosis post valve replacement, hyperlipidemia complaining of increasing stocking-glove paresthesias with chest tightening and heaviness for approximately 9 days now saw her primary care physician on November 17 for the same. Notes that she had a mild upper respiratory infection prior to onset of those symptoms. Comes in today complaining of increasing dyspnea and worsening stocking glove distribution paresthesias. She notes for past 3 nights she has been having severe pain when she is lying down to sleep. Describes it in the upper chest radiating through to her back and down her left arm not associated with diaphoresis. Symptoms today describes the chest pain is in the upper part of her chest more a pressure/heaviness not radiating down her arm but says it is a 7/10 pain and worse than after her valve replacement surgery. She has not been able to eat or drink for the last 9 days due to general malaise, food tasting poorly she has been trying to drink water and ensure shakes but has lost approximately 10 lb. She reports flashes but not necessarily chills. She has not had a bowel movement in 2 days which she describes as significantly unusual however she has not been eating much over the last 10 days. Review of Systems <Sarah Flannery MD - Last Filed: 11/23/24 06:51> Review of Systems Narrative: Pertinent positive and negative findings as per HPI Patient History <Sarah Flannery MD - Last Filed: 11/23/24 06:51> Medical History Fatigue Family history of colon cancer in father Hyperlipidemia Osteopenia determined by x-ray Chicken pox Measles Mumps Migraines Ovarian cyst Herpes Retinal artery branch occlusion, left eye (2017) Surgical History Aortic valve replaced History of open heart surgery S/P aortic valve replacement with bioprosthetic valve Anesthesia complication History of bilateral oophorectomy History of bilateral salpingo-oophorectomy (BSO) Status post tubal ligation Family History Father Colon cancer Hypertension Parkinson's disease Mother Heart disease Hypertension Stroke Heart valve replaced Hip fracture Sister Age: 74 Hypertension Sister Age: 68 Anxiety Grandfather No problems noted. Grandmother Colon cancer Grandfather Heart attack Grandmother Heart problem Social History household members: spouse alcohol intake: current Exam <Sarah Flannery MD - Last Filed: 11/23/24 06:51> Initial Vital Signs Initial Vital Signs: Vital Signs Pulse Oximetry 93 11/19/24 05:44 General: Frail appearing, tachypneic but Able to give a complete and coherent history. No difficulty speaking in full sentences HEENT: Very dry mucous membranes, normal sclera with reactive pupils, Respiratory: Lungs are clear to auscultation, no wheezing no rales no rhonchi. Full and symmetrical air movement Cardiac: Regular rate and rhythm no murmurs no bruits Abdomen: Soft, nontender, no rebound or guarding, no flank pain Skin: Warm and dry, no rashes Neurologic: Grossly neurologically intact with no obvious asymmetries or abnormalities Extremities: No trauma, well perfused Psych: Cooperative, appropriate insight and affect <Winter Dukes DO - Last Filed: 11/29/24 19:08> Initial Vital Signs Initial Vital Signs: Vital Signs Pulse Oximetry 93 11/19/24 05:44 General: Frail appearing, tachypneic but Able to give a complete and coherent history. No difficulty speaking in full sentences HEENT: Very dry mucous membranes, normal sclera with reactive pupils, Respiratory: Lungs are clear to auscultation, no wheezing no rales no rhonchi. Full and symmetrical air movement Cardiac: Regular rate and rhythm no murmurs no bruits Abdomen: Soft, nontender, no rebound or guarding, no flank pain Skin: Warm and dry, no rashes Neurologic: Grossly neurologically intact with no obvious asymmetries or abnormalities Extremities: No trauma, well perfused Psych: Cooperative, appropriate insight and affect Dr. Dukes: Physical exam at 1:11 p.m. 11/19/2024 GEN: alert and oriented x x3, patient appears to be in mild distress. HEENT: Atraumatic, pupils are equal round reactive to light, extraocular movements are intact, nares are clear, TMs are clear with no fluid, there is no conjunctival pallor. Throat is clear without any exudates, erythema, tonsillar enlargement or uvular deviation HEART: Regular rate and rhythm without murmur, clicks, rubs. No carotid bruits, pulses are equal in upper and lower extremities LUNGS:Lungs clear to auscultation, no wheezes, rales, crackles, chest moves symmetrically, fell tachypnea, no accessory muscle use. 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 Patient has 4/5 muscle strength bilateral lower extremities with against resistance of lower extremities and of the thigh. Patient does have quite a bit of shaking and has some drift particularly left upper extremity with straight arm held, patient is able to lift and hold bilateral lower extremities for 5 seconds she has shakiness but no drift back down to the bed. Good range of motion of both lower extremities and upper extremities. Patient has decreased sensation up to about the level of T10 on examination for myself. Procedures <Sarah Flannery MD - Last Filed: 11/23/24 06:51> Lumbar Puncture Time of procedure: 06:54 Patient Position: upright Skin Prep: Povidone-Iodine 1% Local Anesthetic: lidocaine 1% Amount of anesthesia used (mL): 4 Interspace Used: L3-L4 Fluid Initially Obtained: clear Complications: none Course <Sarah Flannery MD - Last Filed: 11/23/24 06:51> Orders Ordered: Discontinued Medications Sodium Chloride (Normal Saline 0.9%) 1,000 mls @ 1,000 mls/hr IV BOLUS ONE Stop: 11/19/24 06:56 Last Infusion: 11/19/24 07:31 Dose: Infused Documented By: Admin: 11/19/24 06:08 Dose: 1,000 mls/hr Documented By: AILYN Sodium Chloride (Normal Saline 0.9%) 1,000 mls @ 1,000 mls/hr IV BOLUS ONE Stop: 11/19/24 08:12 Last Infusion: 11/19/24 09:05 Dose: Infused Documented By: Admin: 11/19/24 07:27 Dose: 1,000 mls/hr Documented By: ALAN Acetaminophen (Ofirmev) 1,000 mg in 100 mls @ 400 mls/hr IV NOW ONE Stop: 11/19/24 08:54 Last Infusion: 11/19/24 09:24 Dose: Infused Documented By: Admin: 11/19/24 08:56 Dose: 400 mls/hr Documented By: ALAN Ceftriaxone Sodium 1,000 mg/ (Sodium Chloride) 100 mls @ 200 mls/hr IV NOW ONE Stop: 11/19/24 08:41 Last Infusion: 11/19/24 09:56 Dose: Infused Documented By: Admin: 11/19/24 09:23 Dose: 200 mls/hr Documented By: ALAN Lactated Ringer's (Lactated Ringers) 1,000 mls @ 125 mls/hr IV CONT OLEKSANDR Last Infusion: 11/19/24 20:05 Dose: Infused Documented By: Admin: 11/19/24 12:09 Dose: 125 mls/hr Documented By: JENELLE Ketorolac Tromethamine (Ketorolac 30 Mg/Ml Vial) 15 mg IV NOW ONE Stop: 11/19/24 17:24 Last Admin: 11/19/24 17:53 Dose: 15 mg Documented By: JENELLE Ondansetron HCl (Ondansetron 4 Mg/2 Ml Inj) 4 mg IV NOW ONE Stop: 11/19/24 08:09 Last Admin: 11/19/24 08:14 Dose: 4 mg Documented By: LM Ondansetron HCl (Ondansetron 4 Mg/2 Ml Inj) 4 mg IV NOW ONE Stop: 11/19/24 16:08 Last Admin: 11/19/24 16:12 Dose: 4 mg Documented By: LM Vital Signs Vital signs: Vital Signs - 8 hr 11/19/24 11:00 11/19/24 11:00 11/19/24 11:30 Pulse Rate 72 79 Respiratory Rate 22 25 H Blood Pressure 170/82 H Pulse Oximetry 99 99 Oxygen Delivery Method Oxygen Flow Rate 11/19/24 11:30 11/19/24 11:36 11/19/24 11:36 Pulse Rate 80 Respiratory Rate 20 Blood Pressure 188/98 H 174/89 H Pulse Oximetry 100 Oxygen Delivery Method Oxygen Flow Rate 11/19/24 12:00 11/19/24 12:00 11/19/24 12:30 Pulse Rate 73 Respiratory Rate 20 Blood Pressure 171/91 H 181/84 H Pulse Oximetry 89 L Oxygen Delivery Method Room Air Oxygen Flow Rate 11/19/24 12:30 11/19/24 13:00 11/19/24 13:26 Pulse Rate 72 81 76 Respiratory Rate 12 21 Blood Pressure Pulse Oximetry 99 99 99 Oxygen Delivery Method Nasal Cannula Oxygen Flow Rate 2 11/19/24 13:26 11/19/24 13:30 11/19/24 13:30 Pulse Rate 69 Respiratory Rate Blood Pressure 157/80 H 164/80 H Pulse Oximetry 92 Oxygen Delivery Method Oxygen Flow Rate 11/19/24 14:00 11/19/24 14:00 11/19/24 14:30 Pulse Rate 80 Respiratory Rate 17 Blood Pressure 168/85 H 165/81 H Pulse Oximetry 98 Oxygen Delivery Method Nasal Cannula Oxygen Flow Rate 2 11/19/24 14:30 11/19/24 15:00 11/19/24 15:00 Pulse Rate 76 84 Respiratory Rate 14 23 Blood Pressure 171/94 H Pulse Oximetry 90 L 99 Oxygen Delivery Method Oxygen Flow Rate 11/19/24 15:30 11/19/24 15:30 11/19/24 16:00 Pulse Rate 78 85 Respiratory Rate 21 28 H Blood Pressure 177/89 H Pulse Oximetry 99 99 Oxygen Delivery Method Oxygen Flow Rate 11/19/24 16:03 11/19/24 16:03 11/19/24 16:30 Pulse Rate 84 80 Respiratory Rate 27 H 23 Blood Pressure 166/86 H Pulse Oximetry 100 99 Oxygen Delivery Method Oxygen Flow Rate 11/19/24 16:30 11/19/24 17:00 11/19/24 17:00 Pulse Rate 76 Respiratory Rate 22 Blood Pressure 160/74 H 162/77 H Pulse Oximetry 99 Oxygen Delivery Method Oxygen Flow Rate 11/19/24 17:30 11/19/24 17:30 Pulse Rate 77 Respiratory Rate 26 H Blood Pressure 168/83 H Pulse Oximetry 99 Oxygen Delivery Method Oxygen Flow Rate <Winter Dukes, - Last Filed: 11/29/24 19:08> Orders Ordered: Discontinued Medications Sodium Chloride (Normal Saline 0.9%) 1,000 mls @ 1,000 mls/hr IV BOLUS ONE Stop: 11/19/24 06:56 Last Infusion: 11/19/24 07:31 Dose: Infused Documented By: Admin: 11/19/24 06:08 Dose: 1,000 mls/hr Documented By: AILYN Sodium Chloride (Normal Saline 0.9%) 1,000 mls @ 1,000 mls/hr IV BOLUS ONE Stop: 11/19/24 08:12 Last Infusion: 11/19/24 09:05 Dose: Infused Documented By: Admin: 11/19/24 07:27 Dose: 1,000 mls/hr Documented By: ALAN Acetaminophen (Ofirmev) 1,000 mg in 100 mls @ 400 mls/hr IV NOW ONE Stop: 11/19/24 08:54 Last Infusion: 11/19/24 09:24 Dose: Infused Documented By: Admin: 11/19/24 08:56 Dose: 400 mls/hr Documented By: ALAN Ceftriaxone Sodium 1,000 mg/ (Sodium Chloride) 100 mls @ 200 mls/hr IV NOW ONE Stop: 11/19/24 08:41 Last Infusion: 11/19/24 09:56 Dose: Infused Documented By: Admin: 11/19/24 09:23 Dose: 200 mls/hr Documented By: ALAN Lactated Ringer's (Lactated Ringers) 1,000 mls @ 125 mls/hr IV CONT OLEKSANDR Last Infusion: 11/19/24 20:05 Dose: Infused Documented By: Admin: 11/19/24 12:09 Dose: 125 mls/hr Documented By: JENELLE Ketorolac Tromethamine (Ketorolac 30 Mg/Ml Vial) 15 mg IV NOW ONE Stop: 11/19/24 17:24 Last Admin: 11/19/24 17:53 Dose: 15 mg Documented By: JENELLE Ondansetron HCl (Ondansetron 4 Mg/2 Ml Inj) 4 mg IV NOW ONE Stop: 11/19/24 08:09 Last Admin: 11/19/24 08:14 Dose: 4 mg Documented By: ALAN Ondansetron HCl (Ondansetron 4 Mg/2 Ml Inj) 4 mg IV NOW ONE Stop: 11/19/24 16:08 Last Admin: 11/19/24 16:12 Dose: 4 mg Documented By: ALAN Vital Signs Vital signs: Vital Signs - 8 hr 11/19/24 11:00 11/19/24 11:00 11/19/24 11:30 Pulse Rate 72 79 Respiratory Rate 22 25 H Blood Pressure 170/82 H Pulse Oximetry 99 99 Oxygen Delivery Method Oxygen Flow Rate 11/19/24 11:30 11/19/24 11:36 11/19/24 11:36 Pulse Rate 80 Respiratory Rate 20 Blood Pressure 188/98 H 174/89 H Pulse Oximetry 100 Oxygen Delivery Method Oxygen Flow Rate 11/19/24 12:00 11/19/24 12:00 11/19/24 12:30 Pulse Rate 73 Respiratory Rate 20 Blood Pressure 171/91 H 181/84 H Pulse Oximetry 89 L Oxygen Delivery Method Room Air Oxygen Flow Rate 11/19/24 12:30 11/19/24 13:00 11/19/24 13:26 Pulse Rate 72 81 76 Respiratory Rate 12 21 Blood Pressure Pulse Oximetry 99 99 99 Oxygen Delivery Method Nasal Cannula Oxygen Flow Rate 2 11/19/24 13:26 11/19/24 13:30 11/19/24 13:30 Pulse Rate 69 Respiratory Rate Blood Pressure 157/80 H 164/80 H Pulse Oximetry 92 Oxygen Delivery Method Oxygen Flow Rate 11/19/24 14:00 11/19/24 14:00 11/19/24 14:30 Pulse Rate 80 Respiratory Rate 17 Blood Pressure 168/85 H 165/81 H Pulse Oximetry 98 Oxygen Delivery Method Nasal Cannula Oxygen Flow Rate 2 11/19/24 14:30 11/19/24 15:00 11/19/24 15:00 Pulse Rate 76 84 Respiratory Rate 14 23 Blood Pressure 171/94 H Pulse Oximetry 90 L 99 Oxygen Delivery Method Oxygen Flow Rate 11/19/24 15:30 11/19/24 15:30 11/19/24 16:00 Pulse Rate 78 85 Respiratory Rate 21 28 H Blood Pressure 177/89 H Pulse Oximetry 99 99 Oxygen Delivery Method Oxygen Flow Rate 11/19/24 16:03 11/19/24 16:03 11/19/24 16:30 Pulse Rate 84 80 Respiratory Rate 27 H 23 Blood Pressure 166/86 H Pulse Oximetry 100 99 Oxygen Delivery Method Oxygen Flow Rate 11/19/24 16:30 11/19/24 17:00 11/19/24 17:00 Pulse Rate 76 Respiratory Rate 22 Blood Pressure 160/74 H 162/77 H Pulse Oximetry 99 Oxygen Delivery Method Oxygen Flow Rate 11/19/24 17:30 11/19/24 17:30 Pulse Rate 77 Respiratory Rate 26 H Blood Pressure 168/83 H Pulse Oximetry 99 Oxygen Delivery Method Oxygen Flow Rate Medical Decision Making <Sarah Flannery MD - Last Filed: 11/23/24 06:51> Lab Data Lab results narrative: Diagnostic criteria???Diagnostic criteria for GBS, originally proposed for research in 1977 by the [employer] [place] [employer]roke (NINDS) [162https://www.[employer]/contents/wefxszhr-jyqto-kcszmjga-xx-oqievm-xyadwvsdrmkl-nqrivboh-wliaqaqs-lmh-diagnosis/abstract/162], are widely used in clinical practice. These criteria are based on expert consensus and have been modified over time to reflect advances in the understanding of GBS [76,104,163,[email or web address].[employer]/contents/gttdcsjg-pwbbq-awgssuqb-np-gvfjnp-ckwbngxaukln-hmvpyjfi-zshcmqor-won-diagnosis/abstract/76,104,163,164]. Required features include: (X noted for positive findings in Marli Almanza) X ?Progressive weakness of the arms and/or legs, ranging from minimal weakness of the legs to total paralysis of all four limbs, and including the trunk, bulbar and facial muscles, and external ophthalmoplegia. X ?Areflexia or decreased deep tendon reflexes in weak limbs. X ?Symptom progression for <= weeks Supportive features include: X -Symptom progression over days to four weeks x ?Relatively symmetric, bilateral symptoms X ?Pain in the trunk or limbs ?Cranial nerve symptoms or signs ?Autonomic dysfunction X ?Respiratory insufficiency X ?Sensory dysfunction that is mild or absent X ?History of preceding systemic infection X ?No fever at symptom onset ? ?CSF with elevated protein and normal to mildly elevated leukocyte count (usually <5 cells/mm3) ?Electrodiagnostic abnormalities consistent with GBS Recovery starting two to four weeks after progression halts 11/19/24 06:00 11/19/24 06:00 Labs: Lab Results 11/19/24 11/19/24 11/19/24 Range/Units 06:00 06:48 10:04 WBC 12.8 H (4.5-11.0) X10^3/uL RBC 5.22 H (4.0-5.2) X10^6/uL Hgb 15.4 (12.0-16.0) g/dL Hct 44.3 (36-46) % MCV 85.0 (80-100) fL MCH 29.4 (26-34) PG MCHC 34.6 (30-36) % RDW 14.1 (11.6-14.8) % Plt Count 472 H (150-400) X10^3/uL Neut % (Auto) 68.9 (50-75) % Lymph % (Auto) 22.5 L (25-40) % [place] % (Auto) 7.6 (3-14) % Eos % (Auto) 0.3 L (2-4) % Baso % (Auto) 0.7 (0-2) % Neut # (Auto) 8800 H (9276-4146) /uL Lymph # (Auto) 2900 (3412-7013) /uL [place] # (Auto) 1000 H (0-900) /uL Eos # (Auto) 0 (0-450) /uL Baso # (Auto) 100 (0-100) /uL ESR 7 D (0-20) MM/HR D-Dimer 864 H (<500) ng/ml ABG Sample Site Left radial ABG pH 7.52 H (7.35-7.45) ABG pCO2 27.7 L (35-45) mmHg ABG pO2 110 H (80-100) mmHg ABG HCO3 23 (23-27) mmol/L ABG Total CO2 21 L (23-27) mmol/L ABG O2 Saturation 99 (95-100) % ABG Base Excess 0.6 (-2-3) mmol/L Devin Test Positive O2 Delivery Device Cannula FiO2 % % Sodium 132 L (137-145) mmol/L Potassium 3.6 (3.4-5.1) mmol/L Chloride 98 (98-107) mmol/L Carbon Dioxide 21 L (22-32) mmol/L BUN 21 H (7-17) mg/dL Creatinine 0.82 (0.52-1.04) mg/dL Estimated GFR > 60 (>60) mL/min BUN/Creatinine Ratio 25.6 H (6-22) Glucose 115 H (70-99) mg/dL Hemoglobin A1c 5.6 (4.0-6.0) % Lactate 1.5 (0.7-2.1) mmol/L Calcium 10.1 (8.4-10.2) mg/dL Magnesium 1.8 (1.6-2.3) mg/dL Total Bilirubin 0.8 (0.2-1.3) mg/dL AST 43 H (14-36) IU/L ALT 27 (<35) IU/L Alkaline Phosphatase 82 (38-126) U/L Troponin I 0.027 (0.01-0.034) ng/mL NT-Pro-B Natriuret Pep 338 H (<125) pg/mL Total Protein 8.2 (6.3-8.2) g/dL Albumin 4.7 (3.5-5.0) g/dL Globulin 3.5 (1.7-4.1) g/dL Albumin/Globulin Ratio 1.3 (1.0-2.8) Lipase 413 H (23-300) U/L Procalcitonin 0.045 (<0.5) ng/mL CSF Tube Number 3 CSF Volume 1.5 ml CSF Appearance Clear (Clear) CSF Color Colorless (Colorless) CSF WBC 1 (0-5) MONO/uL CSF RBC 1535 H (0-5) RBC /uL CSF Mononuclear WBCs TNP CSF Polynuclear WBCs TNP CSF Glucose 64 (40-70) mg/dL CSF Total Protein 75 H (12-60) mg/dL CSF C.neoform/gat PCR Not detected (Not Detect) CSF CMV DNA (PCR) Not detected (Not Detect) CSF Enterovirus (PCR) Not detected (Not Detect) CSF E. coli (PCR) Not detected (Not Detect) CSF H. influenzae (PCR) Not detected (Not Detect) CSF HSV I (PCR) Not detected (Not Detect) CSF HSV II (PCR) Not detected (Not Detect) CSF HHV 6 (PCR) Not detected (Not Detect) CSF L.monocytogenes PCR Not detected (Not Detect) CSF N. meningitidis PCR Not detected (Not Detect) CSF Parechovirus (PCR) Not detected (Not Detect) CSF S. agalactiae (PCR) Not detected (Not Detect) CSF S. pneumoniae (PCR) Not detected (Not Detect) CSF VZV (PCR) Not detected (Not Detecte) Ref Test (Refrig) Comment (.) 11/19/24 11/19/24 11/19/24 Range/Units 12:45 13:30 13:30 WBC (4.5-11.0) X10^3/uL RBC (4.0-5.2) X10^6/uL Hgb (12.0-16.0) g/dL Hct (36-46) % MCV (80-100) fL MCH (26-34) PG MCHC (30-36) % RDW (11.6-14.8) % Plt Count (150-400) X10^3/uL Neut % (Auto) (50-75) % Lymph % (Auto) (25-40) % [place] % (Auto) (3-14) % Eos % (Auto) (2-4) % Baso % (Auto) (0-2) % Neut # (Auto) (6194-9236) /uL Lymph # (Auto) (5282-1171) /uL [place] # (Auto) (0-900) /uL Eos # (Auto) (0-450) /uL Baso # (Auto) (0-100) /uL ESR (0-20) MM/HR D-Dimer (<500) ng/ml ABG Sample Site Left radial ABG pH 7.54 H (7.35-7.45) ABG pCO2 25.1 L (35-45) mmHg ABG pO2 133 H (80-100) mmHg ABG HCO3 22 L (23-27) mmol/L ABG Total CO2 20 L (23-27) mmol/L ABG O2 Saturation 99 (95-100) % ABG Base Excess 0.6 (-2-3) mmol/L Devin Test Positive O2 Delivery Device Cannula FiO2 % 28.0 % % Sodium (137-145) mmol/L Potassium (3.4-5.1) mmol/L Chloride (98-107) mmol/L Carbon Dioxide (22-32) mmol/L BUN (7-17) mg/dL Creatinine (0.52-1.04) mg/dL Estimated GFR (>60) mL/min BUN/Creatinine Ratio (6-22) Glucose (70-99) mg/dL Hemoglobin A1c (4.0-6.0) % Lactate (0.7-2.1) mmol/L Calcium (8.4-10.2) mg/dL Magnesium (1.6-2.3) mg/dL Total Bilirubin (0.2-1.3) mg/dL AST (14-36) IU/L ALT (<35) IU/L Alkaline Phosphatase (38-126) U/L Troponin I (0.01-0.034) ng/mL NT-Pro-B Natriuret Pep (<125) pg/mL Total Protein (6.3-8.2) g/dL Albumin (3.5-5.0) g/dL Globulin (1.7-4.1) g/dL Albumin/Globulin Ratio (1.0-2.8) Lipase (23-300) U/L Procalcitonin (<0.5) ng/mL CSF Tube Number CSF Volume CSF Appearance (Clear) CSF Color (Colorless) CSF WBC (0-5) MONO/uL CSF RBC (0-5) RBC /uL CSF Mononuclear WBCs CSF Polynuclear WBCs CSF Glucose (40-70) mg/dL CSF Total Protein (12-60) mg/dL CSF C.neoform/gat PCR (Not Detect) CSF CMV DNA (PCR) (Not Detect) CSF Enterovirus (PCR) (Not Detect) CSF E. coli (PCR) (Not Detect) CSF H. influenzae (PCR) (Not Detect) CSF HSV I (PCR) (Not Detect) CSF HSV II (PCR) (Not Detect) CSF HHV 6 (PCR) (Not Detect) CSF L.monocytogenes PCR (Not Detect) CSF N. meningitidis PCR (Not Detect) CSF Parechovirus (PCR) (Not Detect) CSF S. agalactiae (PCR) (Not Detect) CSF S. pneumoniae (PCR) (Not Detect) CSF VZV (PCR) (Not Detecte) Ref Test (Refrig) Comment Comment (.) MDM Narrative Medical decision making narrative: CC: Chest pain left side chest tightness, progressive stocking glove distribution paresthesias Complicating co-morbidities: Aortic valve repair, upper respiratory infection just prior to symptoms developing Data collected from: patient Medical records reviewed: ER note from November 12 is reviewed. She presented there complaining of worsening bilateral paresthesias in hands and feet, a brain fussiness and intermittent episodes of her lips feeling tingling. Had an MRI of the brain that did not show acute findings, discussion with Neurology felt that this is most likely a peripheral neuropathy and further outpatient follow up She was seen on November 17 by her primary care physician with progression of the peripheral paresthesias complaints that foods do not taste good difficulty eating drinking because of this, increasing fatigue dysphagia generalized weakness balance difficulties. After blood work and x-ray returned she received a phone call from her primary care physician calling in a prescription for azithromycin and Augmentin, patient was planning to put these prescriptions today. Has not yet had any antibiotics Differential considered: Guillain-[place], acute renal failure, dehydration, viral syndrome Exam documented above, pertinent findings include: Progressively weak, distal paresthesias progressing of arms and legs, I am unable to elicit lower extremity or bicipital tendons. Lungs are completely clear, she is globally weak having difficulty even holding herself sitting. Lab Test results independently reviewed as above. Pertinent findings: Blood work done 24 hours ago: CBC shows mild leukocytosis at 11.9, hemo concentration with hemoglobin at 16.1 and hematocrit 47.4. Chemistries show normal renal function, calcium is minimally elevated at 10.3, potassium is appropriate, D-dimer is elevated, CT scan chest will be ordered Independently reviewed EKG: Sinus rhythm at a rate of 93 no acute ischemic changes Imaging studies independently reviewed: Chest x-ray done on the suggests a small right middle lobe pneumonia Consultations: Treatments: Re-evaluations: Discussion: <Winter Dukes, - Last Filed: 11/29/24 19:08> Lab Data Labs: Lab Results 11/19/24 11/19/24 11/19/24 Range/Units 06:00 06:48 10:04 WBC 12.8 H (4.5-11.0) X10^3/uL RBC 5.22 H (4.0-5.2) X10^6/uL Hgb 15.4 (12.0-16.0) g/dL Hct 44.3 (36-46) % MCV 85.0 (80-100) fL MCH 29.4 (26-34) PG MCHC 34.6 (30-36) % RDW 14.1 (11.6-14.8) % Plt Count 472 H (150-400) X10^3/uL Neut % (Auto) 68.9 (50-75) % Lymph % (Auto) 22.5 L (25-40) % [place] % (Auto) 7.6 (3-14) % Eos % (Auto) 0.3 L (2-4) % Baso % (Auto) 0.7 (0-2) % Neut # (Auto) 8800 H (6880-3952) /uL Lymph # (Auto) 2900 (0321-2708) /uL [place] # (Auto) 1000 H (0-900) /uL Eos # (Auto) 0 (0-450) /uL Baso # (Auto) 100 (0-100) /uL ESR 7 D (0-20) MM/HR D-Dimer 864 H (<500) ng/ml ABG Sample Site Left radial ABG pH 7.52 H (7.35-7.45) ABG pCO2 27.7 L (35-45) mmHg ABG pO2 110 H (80-100) mmHg ABG HCO3 23 (23-27) mmol/L ABG Total CO2 21 L (23-27) mmol/L ABG O2 Saturation 99 (95-100) % ABG Base Excess 0.6 (-2-3) mmol/L Devin Test Positive O2 Delivery Device Cannula FiO2 % % Sodium 132 L (137-145) mmol/L Potassium 3.6 (3.4-5.1) mmol/L Chloride 98 (98-107) mmol/L Carbon Dioxide 21 L (22-32) mmol/L BUN 21 H (7-17) mg/dL Creatinine 0.82 (0.52-1.04) mg/dL Estimated GFR > 60 (>60) mL/min BUN/Creatinine Ratio 25.6 H (6-22) Glucose 115 H (70-99) mg/dL Hemoglobin A1c 5.6 (4.0-6.0) % Lactate 1.5 (0.7-2.1) mmol/L Calcium 10.1 (8.4-10.2) mg/dL Magnesium 1.8 (1.6-2.3) mg/dL Total Bilirubin 0.8 (0.2-1.3) mg/dL AST 43 H (14-36) IU/L ALT 27 (<35) IU/L Alkaline Phosphatase 82 (38-126) U/L Troponin I 0.027 (0.01-0.034) ng/mL NT-Pro-B Natriuret Pep 338 H (<125) pg/mL Total Protein 8.2 (6.3-8.2) g/dL Albumin 4.7 (3.5-5.0) g/dL Globulin 3.5 (1.7-4.1) g/dL Albumin/Globulin Ratio 1.3 (1.0-2.8) Lipase 413 H (23-300) U/L Procalcitonin 0.045 (<0.5) ng/mL CSF Tube Number 3 CSF Volume 1.5 ml CSF Appearance Clear (Clear) CSF Color Colorless (Colorless) CSF WBC 1 (0-5) MONO/uL CSF RBC 1535 H (0-5) RBC /uL CSF Mononuclear WBCs TNP CSF Polynuclear WBCs TNP CSF Glucose 64 (40-70) mg/dL CSF Total Protein 75 H (12-60) mg/dL CSF C.neoform/gat PCR Not detected (Not Detect) CSF CMV DNA (PCR) Not detected (Not Detect) CSF Enterovirus (PCR) Not detected (Not Detect) CSF E. coli (PCR) Not detected (Not Detect) CSF H. influenzae (PCR) Not detected (Not Detect) CSF HSV I (PCR) Not detected (Not Detect) CSF HSV II (PCR) Not detected (Not Detect) CSF HHV 6 (PCR) Not detected (Not Detect) CSF L.monocytogenes PCR Not detected (Not Detect) CSF N. meningitidis PCR Not detected (Not Detect) CSF Parechovirus (PCR) Not detected (Not Detect) CSF S. agalactiae (PCR) Not detected (Not Detect) CSF S. pneumoniae (PCR) Not detected (Not Detect) CSF VZV (PCR) Not detected (Not Detecte) Ref Test (Refrig) Comment (.) 11/19/24 11/19/24 11/19/24 Range/Units 12:45 13:30 13:30 WBC (4.5-11.0) X10^3/uL RBC (4.0-5.2) X10^6/uL Hgb (12.0-16.0) g/dL Hct (36-46) % MCV (80-100) fL MCH (26-34) PG MCHC (30-36) % RDW (11.6-14.8) % Plt Count (150-400) X10^3/uL Neut % (Auto) (50-75) % Lymph % (Auto) (25-40) % [place] % (Auto) (3-14) % Eos % (Auto) (2-4) % Baso % (Auto) (0-2) % Neut # (Auto) (4843-7398) /uL Lymph # (Auto) (0619-7679) /uL [place] # (Auto) (0-900) /uL Eos # (Auto) (0-450) /uL Baso # (Auto) (0-100) /uL ESR (0-20) MM/HR D-Dimer (<500) ng/ml ABG Sample Site Left radial ABG pH 7.54 H (7.35-7.45) ABG pCO2 25.1 L (35-45) mmHg ABG pO2 133 H (80-100) mmHg ABG HCO3 22 L (23-27) mmol/L ABG Total CO2 20 L (23-27) mmol/L ABG O2 Saturation 99 (95-100) % ABG Base Excess 0.6 (-2-3) mmol/L Devin Test Positive O2 Delivery Device Cannula FiO2 % 28.0 % % Sodium (137-145) mmol/L Potassium (3.4-5.1) mmol/L Chloride (98-107) mmol/L Carbon Dioxide (22-32) mmol/L BUN (7-17) mg/dL Creatinine (0.52-1.04) mg/dL Estimated GFR (>60) mL/min BUN/Creatinine Ratio (6-22) Glucose (70-99) mg/dL Hemoglobin A1c (4.0-6.0) % Lactate (0.7-2.1) mmol/L Calcium (8.4-10.2) mg/dL Magnesium (1.6-2.3) mg/dL Total Bilirubin (0.2-1.3) mg/dL AST (14-36) IU/L ALT (<35) IU/L Alkaline Phosphatase (38-126) U/L Troponin I (0.01-0.034) ng/mL NT-Pro-B Natriuret Pep (<125) pg/mL Total Protein (6.3-8.2) g/dL Albumin (3.5-5.0) g/dL Globulin (1.7-4.1) g/dL Albumin/Globulin Ratio (1.0-2.8) Lipase (23-300) U/L Procalcitonin (<0.5) ng/mL CSF Tube Number CSF Volume CSF Appearance (Clear) CSF Color (Colorless) CSF WBC (0-5) MONO/uL CSF RBC (0-5) RBC /uL CSF Mononuclear WBCs CSF Polynuclear WBCs CSF Glucose (40-70) mg/dL CSF Total Protein (12-60) mg/dL CSF C.neoform/gat PCR (Not Detect) CSF CMV DNA (PCR) (Not Detect) CSF Enterovirus (PCR) (Not Detect) CSF E. coli (PCR) (Not Detect) CSF H. influenzae (PCR) (Not Detect) CSF HSV I (PCR) (Not Detect) CSF HSV II (PCR) (Not Detect) CSF HHV 6 (PCR) (Not Detect) CSF L.monocytogenes PCR (Not Detect) CSF N. meningitidis PCR (Not Detect) CSF Parechovirus (PCR) (Not Detect) CSF S. agalactiae (PCR) (Not Detect) CSF S. pneumoniae (PCR) (Not Detect) CSF VZV (PCR) (Not Detecte) Ref Test (Refrig) Comment Comment (.) MDM Narrative Medical decision making narrative: CC: Chest pain left side chest tightness, progressive stocking glove distribution paresthesias Complicating co-morbidities: Aortic valve repair, upper respiratory infection just prior to symptoms developing Data collected from: patient Medical records reviewed: ER note from November 12 is reviewed. She presented there complaining of worsening bilateral paresthesias in hands and feet, a brain fussiness and intermittent episodes of her lips feeling tingling. Had an MRI of the brain that did not show acute findings, discussion with Neurology felt that this is most likely a peripheral neuropathy and further outpatient follow up She was seen on November 17 by her primary care physician with progression of the peripheral paresthesias complaints that foods do not taste good difficulty eating drinking because of this, increasing fatigue dysphagia generalized weakness balance difficulties. After blood work and x-ray returned she received a phone call from her primary care physician calling in a prescription for azithromycin and Augmentin, patient was planning to put these prescriptions today. Has not yet had any antibiotics Differential considered: Guillain-[place], acute renal failure, dehydration, viral syndrome Exam documented above, pertinent findings include: Progressively weak, distal paresthesias progressing of arms and legs, I am unable to elicit lower extremity or bicipital tendons. Lungs are completely clear, she is globally weak having difficulty even holding herself sitting. Lab Test results independently reviewed as above. Pertinent findings: Blood work done 24 hours ago: CBC shows mild leukocytosis at 11.9, hemo concentration with hemoglobin at 16.1 and hematocrit 47.4. Chemistries show normal renal function, calcium is minimally elevated at 10.3, potassium is appropriate, D-dimer is elevated, CT scan chest will be ordered Independently reviewed EKG: Sinus rhythm at a rate of 93 no acute ischemic changes Imaging studies independently reviewed: Chest x-ray done on the suggests a small right middle lobe pneumonia Consultations: Treatments: Re-evaluations: Discussion: 11/19/24 Dr. Dukes: Patient signed out to myself by Dr. Flannery. Concern for potential Guillain-[place] patient has had progressive paresthesias after a brief upper respiratory infection had MRI of brain at outside facility fairly recently had consultation with Neurology and was to follow up outpatient. Has not had increasing fatigue, dysphagia and weakness has a new O2 requirement. LP is pending, patient's dimer was elevated in his slightly hypoxic requiring O2 so CT PE protocol was obtained. Also noted patient had reported pneumonia on chest x-ray and has been prescribed Augmentin azithromycin but has not started those. Patient is seen and evaluated myself she was globally weak but has some movement, 2 L nasal cannula, normal speech. Lungs are clear. Patient knows aspirin is her only daily medication had a prior bovine valve replacement denies other surgeries. Has multiple allergies states she was smoked for 2 years proximally 50 years ago, no regular alcohol or recreational drugs. Discussed plan for CT angio, awaiting LP results. Patient notes that she was full code would wish for intubation if necessary. She was if we can try you do have 1st for transfer we do not have Neurology. Peak flows 240, incentive spirometer was 2400, NIF is 70. LP shows elevated protein, 1 white cell, PCR is negative, 1535 red cells. Patient did have a non-con head CT on 11/12/2024 which was negative as well as a head and neck angio on 11/12/2024 which was negative he was able to review these myself. Reportedly had MRI of her brain as well which was negative at outpatient facility. CT angio PE protocol shows no pulmonary embolism, changes consistent with possible mild central bronchial thickening versus pulmonary edema. ABG obtained to for baseline PE she was 7.52 pCO2 is 27 with a PO2 110 bicarb of 23 nasal cannula at 2 L. patient does not appear to be retaining CO2 at this time was also placed on end-tidal CO2. Patient out to you would up, there was paging out Neurology. Re-contact after no callback for 2 hours. Spoke with Neurology, agrees seems suspicious for Guillain-[place] recommends IVIG which we do not have available to our facility recommends transfer they do not have any bed availability. They do have the center medical director involved. So we seek other facilities that also have ability. Call it to [facility], spoke with coordinator @ [phone]. Will page neurology, Spoke with Dr. Dos Santos @ [phone]. Asked that we make sure to clearly document her motor function in the chart. Reviewed patient's labs, workup, NIF is -70, end-tidal CO2 was 17 most recently when he was in the room 15 minutes ago. He does ask if we can send out anti GBM, GQ 1 be and V, log antibodies, oligoclonal bands, myelin and Aquaphorin in that order if there is additional fluid from CSF. Spoke with lab to have these send out did give order of preference per neurology. Spoke with Dr. Alaniz, hospitalist at [facility]. Plan for transfer to step-down unit but we will change course if patient has any worsening reviewed her labs, workup physical examination most recent ABG and change of NIF from -72 to -60. But patient not having any significant increase end-tidal, ABG actually appears improved. [place] appropriate for step-down at this time. Repeat ABG shows pH of 7 5 pCO2 is 25 with a PO2 of 133 and a bicarb of 22. PCO2 slightly improved still continues to be little bit alkalotic but appears to be more respiratory. NIF -60. On repeat exam with myself I think patient is currently fairly stable though did have a change in her NIf. We will re-contact to make sure they are comfortable with step-down unit shot with the hospitalist if they prefer can upgrade to ICU. Awaiting call back. Spoke with Dr. Alaniz hospitalist [facility]. We will continue with plan for step-down unit reviewed repeat ABG and NIF. Patient is accepted. We will change course and re-contact if patient has respiratory failure and requires intubation. On rechecked with the patient has not had any major increase in her end-tidal, has not had increasing O2 requirements. On exam @ 1850 patient is able to sit up independently without assistance. Will repeat NIF prior to transport but patient appears stable for ALS ground on 2L n/c Critical Care Time <Winter Dukes, DO - Last Filed: 11/29/24 19:08> Critical Care Time Critical Care Time: Yes Total Critical Care Time: 55 Attestation: The high probability of a clinically significant, sudden or life threatening deterioration of the neurologic, respiratory system(s) required my full and direct attention, intervention and personal management. The aggregate critical care time was [--] minutes. 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[place] Prescriptions: No Action calcium carbonate [Tums] See Rx Instructions PO .PRN Rx Instructions: 1-2 tabs orally PRN; diphenhydramine HCl [Benadryl] 25 mg capsule See Rx Instructions PO BEDTIME PRN (Reason: insomnia) Rx Instructions: 1-2 caps orally bedtime PRN; acyclovir 400 mg tablet 400 mg PO TID PRN (Reason: outbreak) Qty: 30 4RF oxnscugiqp-uhgjzfgvzbpwl-vxrk 50-325-40 mg tablet 1 tab PO Q4HP PRN (Reason: headache pain) Qty: 10 4RF amoxicillin 500 mg capsule 2,000 mg PO ONCE Qty: 24 3RF gabapentin 300 mg capsule 300 mg PO TID ibuprofen 600 mg tablet 600 mg PO .Q4 aspirin [Adult Low Dose Aspirin] 81 mg tablet,delayed release (DR/EC) 81 mg PO .HS Referrals: Sheryl Burdick, STOCK MANAGER-BC [Primary Care Provider, Family Practice]
--- NOTE | 2024-11-19 05:46 | EKG_ITS ---
[address] [address] Test Date: 2024-11-19 Pat Name: Marli Almanza Department: Room: Gender: Female [employer]: TYRONE BADILLO : 1950 Requested By: Order Number: [id number] Reading MD: Juliano Beyer MD Measurements Intervals [place] Rate: 93 P: 65 NE: 132 QRS: 87 QRSD: 78 T: 57 QT: 372 QTc: 462 Interpretive Statements Normal sinus rhythm Minimal voltage criteria for LVH, may be normal variant ( [place] product ) Electronically Signed On 11-22-2024 15:02:57 PDT by Juliano Beyer MD
--- NOTE | 2024-11-19 05:58 | DI.RAD.S_ITS ---
PROCEDURE: XR CHEST 1V INDICATIONS: dyspnea TECHNIQUE: One view of the chest was acquired. COMPARISON: [facility], CR, XR CHEST 2V, 11/17/2024, 12:44. FINDINGS: Surgical changes and devices: Sternotomy. Lungs and pleura: Lungs are clear. No pleural effusions or pneumothorax. Mediastinum: Mediastinal contours appear normal. Heart size is normal. Bones and chest wall: No suspicious bony lesions. Overlying soft tissues appear unremarkable. IMPRESSION: No acute cardiopulmonary abnormality is seen. Agree with preliminary report. Dictated by: Graeme Carbajal M.D. on 11/19/2024 at 8:14 Approved by: Graeme Carbajal M.D. on 11/19/2024 at 8:15
[2024-11-19] MEDS: SODIUM CHLORIDE 0.9% 1,000 ML 1000 ML IV ×2 (06:08→07:27)
[2024-11-19 06:17] LABS: Add Manual Diff / Slide Review NO; Basophils Absolute Auto 100 /uL (0-100); Basophils Percent Auto 0.7 % (0-2); Eosinophils Absolute Auto 0 /uL (0-450); Eosinophils Percent Auto 0.3 % (2-4); Hematocrit 44.3 % (36-46); Hemoglobin 15.4 g/dL (12.0-16.0); Lymphocytes Absolute Auto 2900 /uL (1100-4500); Lymphocytes Percent Auto 22.5 % (25-40); Mean Corpuscular HGB Conc 34.6 % (30-36); Mean Corpuscular Hemoglobin 29.4 PG (26-34); Monocytes Absolute Auto 1000 /uL (0-900); Monocytes Percent Auto 7.6 % (3-14); Neutrophils Absolute Auto 8800 /uL (1500-7000); Neutrophils Percent Auto 68.9 % (50-75); Platelet Count 472 X10^3/uL (150-400); Red Blood Cell Count 5.22 X10^6/uL (4.0-5.2); Red Cell Distribution Width 14.1 % (11.6-14.8); White Blood Cell Count 12.8 X10^3/uL (4.5-11.0)
[2024-11-19 06:27] LABS: D Dimer 864 ng/ml (<500)
[2024-11-19 06:30] LABS: Lactate (Lactic Acid) 1.5 mmol/L (0.7-2.1)
[2024-11-19 06:31] LABS: Alanine Aminotransferase 27 IU/L (<35); Albumin 4.7 g/dL (3.5-5.0); Albumin Globulin Ratio 1.3 (1.0-2.8); Alkaline Phosphatase 82 U/L (38-126); Aspartate Aminotransferase 43 IU/L (14-36); BUN Creatinine Ratio 25.6 (6-22); Bilirubin Total 0.8 mg/dL (0.2-1.3); Blood Urea Nitrogen 21 mg/dL (7-17); Calcium 10.1 mg/dL (8.4-10.2); Carbon Dioxide 21 mmol/L (22-32); Chloride 98 mmol/L (98-107); Estimated Glomerular Filt Rate > 60 mL/min (>60); Globulin 3.5 g/dL (1.7-4.1); Glucose 115 mg/dL (70-99); HEMOLYSIS < 15 (0-50); Lipase 413 U/L (23-300); Magnesium 1.8 mg/dL (1.6-2.3); Potassium 3.6 mmol/L (3.4-5.1); Sodium 132 mmol/L (137-145); Total Protein 8.2 g/dL (6.3-8.2)
[2024-11-19 06:37] LABS: Hemoglobin A1C% w Est Avg Glu 5.6 % (4.0-6.0)
[2024-11-19 06:43] LABS: NT-proBNP (BNP-Adult 18+) 338 pg/mL (<125); Troponin I 0.027 ng/mL (0.01-0.034)
[2024-11-19 06:44] LABS: Erythrocyte Sedimentation Rate 7 MM/HR (0-20)
[2024-11-19 06:48] LABS: Procalcitonin 0.045 ng/mL (<0.5)
--- NOTE | 2024-11-19 07:12 | DI.CT.S_ITS ---
PROCEDURE: CT ANGIO CHEST PE PROTOCOL INDICATIONS: elevated d dimer TECHNIQUE: After the administration of intravenous contrast, 2 mm thick sections acquired from the pulmonary apices to the posterior costophrenic angles. 3-dimensional maximum intensity projection (MIP) coronal and sagittal reformats were then acquired through the thorax. For radiation dose reduction, the following was used: automated exposure control, adjustment of mA and/or kV according to patient size. COMPARISON: None. FINDINGS: Image quality: Diagnostic. Pulmonary arteries: Pulmonary arteries are normal in size, and demonstrate no intraluminal filling defects to suggest central pulmonary embolism. Lower Neck: No enlarged lymph nodes. Thyroid: No thyroid nodules which require sonographic follow up, per consensus guidelines. Axillae: No enlarged lymph nodes. Chest Wall: Unremarkable. Bones: Unremarkable. Lungs and Pleura: Biapical scarring. No consolidation or effusions. Central bronchial thickening. Physiologic air trapping in the lung bases. Heart: Heart size is enlarged, with prosthetic aortic valve. No pericardial effusion. Thoracic Vessels: Ascending aortic aneurysm measuring 4.1 cm. Mediastinum and Angela: No enlarged lymph nodes. Esophagus: No wall thickening. No hiatal hernia. Upper Abdomen: Visualized upper abdomen solid organs and bowel loops appear normal. IMPRESSION: No pulmonary embolus. Mild central bronchial thickening, suggestive of infectious or inflammatory bronchitis versus early pulmonary edema. Ascending aortic aneurysm measuring 4.1 cm. Biannual CTA of the chest should be considered for surveillance. Dictated by: Graeme Carbajal M.D. on 11/19/2024 at 8:15 Approved by: Graeme Carbajal M.D. on 11/19/2024 at 8:21
[2024-11-19 07:18] LABS: Glucose CSF 64 mg/dL (40-70); Total Protein CSF 75 mg/dL (12-60)
[2024-11-19 07:51] LABS: Appearance CSF Clear (Clear); CSF Tube Number 3; CSF Tube Volume 1.5 mL; Color CSF Colorless (Colorless); Red Blood Cell CSF 1535 RBC /uL (0-5); White Blood Cell CSF 1 MONO/uL (0-5)
[2024-11-19] MEDS: ONDANSETRON 4 MG/2 ML INJ IV ×2 (08:14→16:12)
[2024-11-19 08:26] LABS: Cryptococcus neoformans/gattii Not Detected (Not Detect); Enterovirus Not Detected (Not Detect); Escherichia coli K1 Not Detected (Not Detect); Haemophilus influenzae Not Detected (Not Detect); Herpes simplex virus 1 Not Detected (Not Detect); Herpes simplex virus 2 Not Detected (Not Detect); Human herpesvirus 6 Not Detected (Not Detect); Human parechovirus Not Detected (Not Detect); Listeria monocytogenes Not Detected (Not Detect); Neisseria meningitidis Not Detected (Not Detect); Streptococcus agalactiae Not Detected (Not Detect); Streptococcus pneumoniae Not Detected (Not Detect); Varicella Zoster Virus Not Detected (Not Detecte)
--- NOTE | 2024-11-19 08:26 | RT ---
IS 2400 with good effort, PF 240/220 good effort, NIF -70 good effot noted on all three
[2024-11-19] MEDS: ACETAMINOPHEN IV 1,000 MG/100 ML VIAL 400 MG IV (08:56)
[2024-11-19] MEDS: cefTRIAXone 1,000 MG in SODIUM CHLORIDE 0.9% 100 ML 200 MG IV (09:23)
--- NOTE | 2024-11-19 10:01 | PC.NURSE ---
Pt c/o increasing weakness and numbness to hips, used cold to test sensation, pt has limited sensation to just above bilat hips. Provider aware
[2024-11-19 10:10] LABS: Allen Test for ABG Passed? Positive; Base Excess ABG 0.6 mmol/L (-2-3); Blood Gas Collection Site Left Radial; Delivery System Cannula; HCO3 ABG 23 mmol/L (23-27); Oxygen Saturation ABG 99 % (95-100); PCO2 ABG 27.7 mmHg (35-45); PO2 ABG 110 mmHg (80-100); TCO2 ABG 21 mmol/L (23-27); pH ABG 7.52 (7.35-7.45)
--- NOTE | 2024-11-19 11:45 | PC.NURSE ---
Patient assessed at change of shift. Lungs clear. Work of breathing is mildly labored at rest at 30 R/m. Her o2 sat was 100% on 2L NC. Her supplemental O2 was turned off for a trial. 99% on RA. End tidal 20. after 30 mintues her 02 dropped to 85% on RA. She was resting and told to take some deep breathes. her supplemental o2 was turned back on to 2LNC
[2024-11-19] MEDS: LACTATED RINGERS 1,000 ML 125 ML IV (12:09)
--- NOTE | 2024-11-19 12:20 | PC.NURSE ---
pt Appears to be getting tired. As she rests her end tidal is reporting apnea intermittently. She responds well to being encouraged to take deep breathes. Provider made aware of this change in her condition. ABG ordered
[2024-11-19 12:48] LABS: Allen Test for ABG Passed? Positive; Base Excess ABG 0.6 mmol/L (-2-3); Blood Gas Collection Site Left Radial; Delivery System Cannula; HCO3 ABG 22 mmol/L (23-27); Oxygen Saturation ABG 99 % (95-100); PCO2 ABG 25.1 mmHg (35-45); PO2 ABG 133 mmHg (80-100); TCO2 ABG 20 mmol/L (23-27); pH ABG 7.54 (7.35-7.45)
--- NOTE | 2024-11-19 15:47 | PC.NURSE ---
pt stated that her hearing is diminishing. Provider aware.
[2024-11-19] MEDS: KETOROLAC 30 MG/ML VIAL 15 MG IV (17:53)
== END 2024-11-19 18:30 | disposition short-term general hospital (02) ==
PROVIDERS: Emergency Medicine; Emergency Provider Emergency Medicine; PCP Nurse Practitioner Family
DX: G61.0 Guillain-Barre syndrome (principal); Z95.2 Presence of prosthetic heart valve
CPT/HCPCS: 36415; 36600; 62270; 71045; 71275; 80053; 82805; 82945; 83036; 83605; 83690; 83735; 83880; 84145; 84157; 84484; 85025; 85379; 85651; 87040; 87070; 87205; 87798; 89051; 93005; 94150; 96361; 96365; 96367; 96375; 96376; 99284; 99291; J0131; J0696; J1885; J2405; Q9967

== ENCOUNTER → 2025-03-17 08:43 | Outpatient (CLI) | payer MEDICARE, OTHER, SELFPAY ==
--- NOTE | 2025-03-17 08:45 | DI.US.S_ITS ---
MM diagnostic mammo BI, US axillary only rt: 03/17/2025 BI-RADS: 2 CLINICAL: 74-year old female for bilateral diagnostic mammogram and right diagnostic breast ultrasound. Tyrer-Cuzick lifetime risk of 5.4%. No personal or first- degree family history of breast cancer. The patient had a prior left breast biopsy. The patient presents for evaluation of a palpable abnormality in the right axilla for the past few weeks. PRIOR EXAMS 04/24/2024, 10/15/2023, 03/22/2023, 02/14/2022. MAMMOGRAPHY TECHNIQUE: 2D and 3D (tomosynthesis) digital mammographic views obtained, with additional images as needed for full coverage. Current study was also evaluated with a Computer Aided Detection (CAD) system. ULTRASOUND TECHNIQUE Exam is limited to the right axilla. Real-time olivera scale and color doppler imaging of the area of clinical interest was performed with image documentation. DENSITY C. The breasts are heterogeneously dense, which may obscure small masses. MAMMOGRAPHY FINDINGS Right: MLO only, Axilla: A skin marker was placed in the area of concern, and no mammographic abnormalities are identified or to account for concern by the patient of a palpable lump. No suspicious mass, asymmetry, microcalcification, or other abnormality seen. Left: No suspicious mass, asymmetry, microcalcification, or other abnormality seen. ULTRASOUND FINDINGS Right: Axilla, measuring 1.1 x 0.4 x 0.8 cm: Underlying surface marker and correlating with palpable lump there is an intradermal sebaceous cyst present. Right: Axilla, measuring 0.9 x 0.2 x 0.7 cm: Underlying surface marker and correlating with palpable lump there is an intradermal sebaceous cyst present. IMPRESSION: Right * No evidence of malignancy with benign findings. Left * No evidence of malignancy. RECOMMENDATIONS Right * Clinical follow-up is recommended, and further management of palpable abnormalities or other focal signs or symptoms should be based on the results of clinical evaluation. If palpable abnormality or other concerning symptom persists or progresses, further clinical evaluation should be considered. Bilateral * Annual screening mammography. COMMENTS: Findings and recommendations were conveyed to the patient during today's evaluation. OVERALL ASSESSMENT CATEGORY BI-RADS-2: Benign. The [employer] recommends annual screening mammography beginning at age 40 for women with average risk of breast cancer. ELECTRONICALLY SIGNED: Franca Alcantar M.D. on 03/17/2025 at 09:58:25 AM PT Interpreting Station ID: [id number]
== END ==
PROVIDERS: PCP Nurse Practitioner Family; Referring Provider Nurse Practitioner Family; Visit Provider Nurse Practitioner Family
DX: L72.3 Sebaceous cyst (principal); R92.333 Mammographic heterogeneous density, bilateral breasts
CPT/HCPCS: 76882; 77066; G0279